=== PATIENT | female | born 1935 | race Caucasian/White ===

== ENCOUNTER 2016-07-23 15:05 | Emergency (ER) | payer MEDICARE, BC ==
[2016-07-23 15:41] VITALS: BP 137/67; PULSE 64; RESP 16; TEMP 97.6; O2SAT 99
== END 2016-07-23 16:54 | disposition home or self-care (01) | DRG 880 ==
LOC: ED 15:05
DX: F41.9 Anxiety disorder, unspecified (principal); R41.3 Other amnesia
CPT/HCPCS: 99282

== ENCOUNTER 2016-10-03 06:20 | Day surgery (SDC) | payer MEDICARE, BC ==
[2016-10-03] MEDS ORDERED: ACETAZOLAMIDE 250 MG PO ONE (06:27)
[2016-10-03 06:45] VITALS: TEMP 97.1
[2016-10-03] MEDS: PROPARACAINE HCL 0.5% OPHTHALMIC SOL ONE ×3 (06:53→08:06)
[2016-10-03] MEDS: PHENYLEPHRINE HCL 10% OPHTHAL SOL ONE ×2 (06:54→07:14)
[2016-10-03] MEDS: CYCLOPENTOLATE 1% SOL ONE ×2 (06:55→07:14)
[2016-10-03] MEDS ORDERED: MIDAZOLAM 2 MG/2 ML SOL ONE (07:51)
[2016-10-03] MEDS ORDERED: POVIDONE IODINE 5% SOL ONE (08:02)
[2016-10-03] MEDS ORDERED: BSS 500 ML 500 ML IR ONE (08:02)
[2016-10-03] MEDS ORDERED: LIDOCAINE HCL 1% MPF SOL ONE (08:02)
[2016-10-03 08:38] VITALS: BP 126/68; PULSE 61; RESP 20; O2SAT 98
== END 2016-10-03 08:52 | disposition home or self-care (01) | DRG 125 ==
LOC: SURG 06:20
PROVIDERS: ATTEND Ophthalmology
DX: H25.9 Unspecified age-related cataract (principal)
CPT/HCPCS: J2250; J2001

== ENCOUNTER 2016-10-31 08:49 | Day surgery (SDC) | payer MEDICARE, BC ==
[~2016-10-31 08:49] MED LIST: MIDAZOLAM 2 MG/2 ML SOL ONE
[2016-10-31] MEDS ORDERED: POVIDONE IODINE 5% SOL ONE (08:57)
[2016-10-31] MEDS ORDERED: BSS 500 ML 500 ML IR ONE (08:57)
[2016-10-31] MEDS ORDERED: LIDOCAINE HCL 1% MPF SOL ONE (08:57)
[2016-10-31] MEDS ORDERED: ACETAZOLAMIDE 500 MG CER ONE (08:59)
[2016-10-31] MEDS: PROPARACAINE HCL 0.5% OPHTHALMIC SOL ONE ×3 (09:16→09:34)
[2016-10-31] MEDS: PHENYLEPHRINE HCL 10% OPHTHAL SOL ONE ×2 (09:17→09:29)
[2016-10-31] MEDS: CYCLOPENTOLATE 1% SOL ONE ×2 (09:18→09:29)
[2016-10-31 10:18] VITALS: BP 147/52; PULSE 58; RESP 20; TEMP 98.3; O2SAT 98
== END 2016-10-31 10:30 | disposition home or self-care (01) | DRG 125 ==
LOC: SURG 08:49
PROVIDERS: ATTEND Ophthalmology
DX: H25.9 Unspecified age-related cataract (principal); E11.9 Type 2 diabetes mellitus without complications; Z79.4 Long term (current) use of insulin
CPT/HCPCS: 82962; J2250; J2001